=== PATIENT | female | born 1980 | race Caucasian/White ===

== ENCOUNTER 2025-02-24 23:11 | Emergency (ER) | payer OTHER ==
[~2025-02-24] VITALS: Ht 177.8 cm; Wt 136.1 kg
[2025-02-24] MEDS ORDERED: ABILIFY2 MG PO (23:53)
[2025-02-24] MEDS ORDERED: OMEPRAZOLE20 MG PO (23:54)
[2025-02-24] MEDS ORDERED: SPIRONOLACTONE100 MG NG (23:54)
[2025-02-24] MEDS ORDERED: OZEMPIC1 MG/0.71 (23:55)
[2025-02-24] MEDS ORDERED: YAZ 28 TABLET1 EACH PO (23:55)
[2025-02-24] MEDS ORDERED: ADDERALL 10 MG10 MG PO (23:56)
[2025-02-25 00:51] LABS: BASOPHILS 0.6 % (0-2); EOSINOPHILS 2.1 % (0-6); HEMATOCRIT 45.7 % (35.0-50.0); HEMOGLOBIN 15.5 g/dL (12.0-18.0); MCH 30.8 (27-36); MCV 90.8 fl (81-99); MONOCYTES 7.3 % (0-12); PLATELET COUNT 354 K/uL (140-440); RBC 5.04 M/ul (4.3-5.7); RDW 14.4 (10.5-15.0)
[2025-02-25 01:05] VITALS: BP 138/80
== END 2025-02-25 01:05 | disposition home or self-care (01) ==
LOC: ED 23:11
PROVIDERS: Internal Medicine
DX: S40.022A Contusion of left upper arm, initial encounter (principal); W01.190A Fall on same level from slipping, tripping and stumbling with subsequent striking against furniture, initial encounter; Z88.0 Allergy status to penicillin; Z88.2 Allergy status to sulfonamides; Z88.8 Allergy status to other drugs, medicaments and biological substances; Z79.899 Other long term (current) drug therapy
CPT/HCPCS: 36415; 73060; 85025; 99283